=== PATIENT | female | born 1940 | race Caucasian/White ===

== ENCOUNTER 2017-06-26 11:36 | Inpatient (IN) | payer MEDICARE, OTHER ==
[2017-06-26] MEDS ORDERED: MORPHINE SULFATE 4 MG/ML SYRINGE IVP STA (12:23)
[2017-06-26] MEDS ORDERED: SODIUM CHLORIDE 0.9% 1,000 ML IV ONE (12:29)
--- NOTE | 2017-06-26 12:36 | ED ---
Fall HPI <Eliel Baires - Last Filed: 06/26/17 13:44> - General Source: patient, EMS, RN notes reviewed, old records reviewed Mode of arrival: EMS <Hilary Olson - Last Filed: 06/26/17 14:07> - General Chief Complaint: Fall Stated Complaint: right hip pain following fall at [employer] Time Seen by Provider: 06/26/17 12:06 - History of Present Illness Initial Comments: This patient is a pleasant 77-year-old female with a history of falling while she was leaving [employer] today. She reports that she someone steps and landed on her right hip. Since that she landed mainly on her hip ports that she did have a small contusion over the posterior scalp but did not lose consciousness. She states she has no upper extremity pain. Denies any numbness or tingling, leg. Patient states she is not seeing a primary care provider. They moved to this area a few years ago. Patient does not follow with PCP. Patient reports that she was unable to get up after the fall. (Hilary Olson) - Related Data Home Medications Medication Instructions Recorded Confirmed Acetaminophen Tab [Tylenol Tab] 650 mg PO Q4H PRN 06/26/17 06/26/17 Allergies Allergy/AdvReac Type Severity Reaction Status Date / Time codeine Allergy Unknown Verified 06/26/17 12:13 Review of Systems ROS Other: All systems not noted in ROS Statement are negative. <Eliel Baires - Last Filed: 06/26/17 13:44> ROS Other: All systems not noted in ROS Statement are negative. <Hilary Olson - Last Filed: 06/26/17 14:07> ROS Statement: Those systems with pertinent positive or pertinent negative responses have been documented in the HPI. Past Medical History Past Medical History: No Reported History History of Any Multi-Drug Resistant Organisms: None Reported Past Surgical History: Breast Surgery, Cholecystectomy, Hysterectomy Past Psychological History: No Psychological Hx Reported Smoking Status: Current every day smoker Past Alcohol Use History: None Reported Past Drug Use History: None Reported <Hilary Olson - Last Filed: 06/26/17 14:07> General Exam <Eliel Baires - Last Filed: 06/26/17 13:44> Limitations: physical limitation General appearance: alert, in no apparent distress Head exam: Present: atraumatic, normocephalic, normal inspection Eye exam: Present: normal appearance, PERRL, EOMI. Absent: scleral icterus, conjunctival injection, periorbital swelling ENT exam: Present: normal exam, normal oropharynx, mucous membranes moist Neck exam: Present: normal inspection. Absent: tenderness, meningismus, lymphadenopathy Respiratory exam: Present: normal lung sounds bilaterally. Absent: respiratory distress, wheezes, rales, rhonchi, stridor Cardiovascular Exam: Present: regular rate, normal rhythm, normal heart sounds. Absent: systolic murmur, diastolic murmur, rubs, gallop, clicks GI/Abdominal exam: Present: soft, normal bowel sounds. Absent: distended, tenderness, guarding, rebound, rigid Right Hip exam: Present: tenderness (over lateral hip), external rotation, shortening. Absent: normal inspection, full ROM Knee exam: Present: normal inspection, full ROM Lower Leg exam: Present: normal inspection, full ROM Ankle exam: Present: normal inspection, full ROM Foot/Toe exam: Present: normal inspection, full ROM Neurovascular tendon exam: Present: no vascular compromise Psychiatric exam: Present: normal affect, normal mood Skin exam: Present: warm, dry, intact, normal color. Absent: rash <Hilary Olson - Last Filed: 06/26/17 14:07> - General Exam Comments Initial Comments: This is a 77-year-old female. Alert and oriented morning 4. No distress. ( Hilary Olson) Vital Signs 06/26/17 11:48 Temperature 97.3 F L Pulse Rate 65 Respiratory 16 Rate Blood Pressure 144/63 O2 Sat by Pulse 96 Oximetry Medical Decision Making - Lab Data Result diagrams: 06/26/17 12:30 06/26/17 12:30 <Eliel Baires - Last Filed: 06/26/17 13:44> - Lab Data Result diagrams: 06/26/17 12:30 06/26/17 12:30 - Radiology Data Radiology results: report reviewed <Hilary Olson - Last Filed: 06/26/17 14:07> - Medical Decision Making Patient was reevaluated by myself, Dr. Baires. Patient and family updated. X- rays reviewed. Case was discussed in detail with Dr. Angel, who will admit with orthopedics. He does request medical consult. (Eliel Baires) This patient is a viral female chief complaint of right hip pain after falling while she was leaving [employer]. Patient has evidence of shortening of the right leg with external rotation. Patient has normal pulses distally. Normal sensation. Patient is otherwise healthy. She does not follow up with primary care provider. Review the x-rays and shows evidence of a femoral neck fracture. Discussed with Dr. Baires. He discussed with orthopedic physician Dr. Elias. We will admit the patient to Dr. Angel with consult to medicine. Patient will be given a consult to the on-call medical coverage. Patient was given a Mckeon cath for comfort care. She will be nothing by mouth after midnight. (iHlary Olson) - Lab Data Lab Results 06/26/17 06/26/17 06/26/17 Range/Units 12:30 12:30 12:30 WBC 6.6 (3.8-10.6) k/uL RBC 4.25 (3.80-5.40) m/uL Hgb 13.3 (11.4-16.0) gm/dL Hct 39.1 (34.0-46.0) % MCV 92.1 (80.0-100.0) fL MCH 31.3 (25.0-35.0) pg MCHC 34.0 (31.0-37.0) g/dL RDW 12.2 (11.5-15.5) % Plt Count 212 (150-450) k/uL Neutrophils % 71 % Lymphocytes % 21 % Monocytes % 6 % Eosinophils % 1 % Basophils % 1 % Neutrophils # 4.7 (1.3-7.7) k/uL Lymphocytes # 1.4 (1.0-4.8) k/uL Monocytes # 0.4 (0-1.0) k/uL Eosinophils # 0.1 (0-0.7) k/uL Basophils # 0.1 (0-0.2) k/uL PT 10.1 (9.0-12.0) sec INR 1.0 (<1.2) APTT 22.0 (22.0-30.0) sec Sodium 143 (137-145) mmol/L Potassium 5.0 (3.5-5.1) mmol/L Chloride 109 H (98-107) mmol/L Carbon Dioxide 28 (22-30) mmol/L Anion Gap 6 mmol/L BUN 15 (7-17) mg/dL Creatinine 0.85 (0.52-1.04) mg/dL Est GFR (CKD-EPI)AfAm 78 (>60 ml/min/1.73 sqM) Est GFR (CKD-EPI)NonAf 68 (>60 ml/min/1.73 sqM) Glucose 104 H (74-99) mg/dL Calcium 10.1 (8.4-10.2) mg/dL Total Bilirubin 0.5 (0.2-1.3) mg/dL AST 24 (14-36) U/L ALT 24 (9-52) U/L Alkaline Phosphatase 62 (38-126) U/L Total Protein 6.1 L (6.3-8.2) g/dL Albumin 3.8 (3.5-5.0) g/dL 06/26/17 14:06 EKG shows sinus bradycardia, possible left atrial enlargement. Nonspecific T-wave abnormality. Ventricular rate of 57 bpm. UT interval 150 ms. QRS duration 98 ms. QT QTc is 440/428 ms. (Hilary Olson) - Radiology Data Chest x-ray is negative for any acute cardiopulmonary process. There is an acute minimally displaced transcervical fracture of the right proximal femur femoral neck level. (Hilary Olson) Disposition <Eliel Baires - Last Filed: 06/26/17 13:44> Time of Disposition: 13:49 <Hilary Olson - Last Filed: 06/26/17 14:07> Clinical Impression: Closed right hip fracture Disposition: ADMITTED IP TO THIS HOSP Condition: Good
[2017-06-26 12:48] LABS: Basophils # (A) 0.1 k/uL (0-0.2); Basophils % (A) 1 %; Eosinophils # (A) 0.1 k/uL (0-0.7); Eosinophils % (A) 1 %; HCT 39.1 % (34.0-46.0); HGB 13.3 gm/dL (11.4-16.0); Lymphocytes # (A) 1.4 k/uL (1.0-4.8); Lymphocytes % (A) 21 %; MCH 31.3 pg (25.0-35.0); MCV 92.1 fL (80.0-100.0); Mean Platelet Volume 7.6; Monocytes # (A) 0.4 k/uL (0-1.0); Monocytes % (A) 6 %; Neutrophils # (A) 4.7 k/uL (1.3-7.7); Neutrophils % (A) 71 %; Platelet Count 212 k/uL (150-450); RBC 4.25 m/uL (3.80-5.40); RDW 12.2 % (11.5-15.5); WBC 6.6 k/uL (3.8-10.6)
[2017-06-26 13:01] LABS: Albumin 3.8 g/dL (3.5-5.0); Calcium 10.1 mg/dL (8.4-10.2); Total Bilirubin 0.5 mg/dL (0.2-1.3); Total Protein 6.1 g/dL (6.3-8.2)
[2017-06-26 13:02] LABS: Prothrombin Time 10.1 sec (9.0-12.0)
--- NOTE | 2017-06-26 13:14 | XR ---
EXAMINATION TYPE: XR chest 1V DATE OF EXAM: 06/26/2017 COMPARISON: NONE HISTORY: Presurgical study. TECHNIQUE: 2 frontal views of the chest are obtained. FINDINGS: Overlying artifact from bra is present. There is chronic parenchymal change without suspici ous focal air space opacity, pleural effusion, or pneumothorax seen. The cardiac silhouette size is within normal limits with atherosclerotic thoracic aorta. The osseous structures are somewhat demin eralized. Underlying scoliosis is present. IMPRESSION: No acute cardiopulmonary process.
--- NOTE | 2017-06-26 13:19 | XR ---
EXAMINATION TYPE: XR Hip RT and AP Pelvis DATE OF EXAM: 06/26/2017 COMPARISON: NONE HISTORY: Pain after fall injury. TECHNIQUE: A single AP view of the pelvis is obtained. Two views of the right hip are attempted. FINDINGS: [place] osseous structures are demineralized. There is acute slightly impacted transcervical fracture right proximal. No hip joint dislocation is seen. Incidental asymmetric mild to moderate ax ial joint space loss in the left hip. Pubic symphysis is intact. No additional acute fracture and pel vis is seen. Sacroiliac joints are maintained. Overlying vascular calcification is seen. IMPRESSION: There is acute minimally displaced transcervical fracture of the right proximal femur fe moral neck level.
[2017-06-26] MEDS ORDERED: NALOXONE 0.4 MG/ML 1 ML VIAL IV PRN (13:50)
[2017-06-26] MEDS ORDERED: IBUPROFEN 400 MG TAB PO PRN (13:50)
[2017-06-26] MEDS ORDERED: MORPHINE SULFATE 4 MG/ML SYRINGE IVP PRN (13:50)
[2017-06-26] MEDS ORDERED: ACETAMINOPHEN TAB 325 MG TAB PO PRN (13:50)
--- NOTE | 2017-06-26 14:37 | P.HPOR ---
History of Present Illness H&P Date: 06/26/17 Chief Complaint: right hip fracture Mrs. Jamey Rodriguez is a 77-year-old female was coming down the stairs today and missed the last step, and fell, sustaining a right hip injury. She was unable to walk, and was taken via ambulance to [facility] where x- rays were taken in the ER and showed a displaced femoral neck fracture. I was contacted for further evaluation and management of this injury. She does not complain of any other injuries and says that she is healthy. Review of Systems Constitutional: Reports as per HPI Past Medical History Past Medical History: No Reported History History of Any Multi-Drug Resistant Organisms: None Reported Past Surgical History: Breast Surgery, Cholecystectomy, Hysterectomy Past Psychological History: No Psychological Hx Reported Smoking Status: Current every day smoker Past Alcohol Use History: None Reported Past Drug Use History: None Reported Medications and Allergies Home Medications Medication Instructions Recorded Confirmed Type Acetaminophen Tab [Tylenol Tab] 650 mg PO Q4H PRN 06/26/17 06/26/17 History Allergies Allergy/AdvReac Type Severity Reaction Status Date / Time codeine Allergy Unknown Verified 06/26/17 12:13 Physical Examination Right hip irritable to rotation and any motion. Leg is slightly shortened and externally rotated. Intact pedal pulses. Skin intact over right hip. Results - Labs Labs: Abnormal Lab Results - Last 24 Hours (Table) 06/26/17 Range/Units 12:30 Chloride 109 H (98-107) mmol/L Glucose 104 H (74-99) mg/dL Total Protein 6.1 L (6.3-8.2) g/dL H & H 06/26/17 Range/Units 12:30 Hgb 13.3 (11.4-16.0) gm/dL Hct 39.1 (34.0-46.0) % Coagulation 06/26/17 Range/Units 12:30 INR 1.0 (<1.2) Result Diagrams: 06/26/17 12:30 06/26/17 12:30 - Diagnostic results Hip x-ray: report reviewed, image reviewed (Displaced right femoral neck fracture with some irregularity of the neck question pathologic) Assessment and Plan Assessment: Right displaced femoral neck fracture, possibly pathologic. Plan: Discussed cemented hemiarthroplasty with the patient in detail today. She wishes to proceed after explanation of the potential risks and complications as being inclusive of, but not limited to: Bleeding, infection, scarring, discomfort, blood vessel and/or nerve damage, limb length inequality, limp, blood clot, pulmonary embolism, , anesthesia risks, and other risks. Preoperative medical clearance will be obtained from hospitalist. Anticipate surgery tomorrow.
[2017-06-26 14:45] VITALS: BMI 25.6
[2017-06-26] MEDS: KETOROLAC 30 MG/ML 1 ML VIAL IVP PRN ×2 (15:03→21:19)
[2017-06-26] MEDS: MORPHINE SULFATE 4 MG/ML SYRINGE IV PRN (15:47)
[2017-06-26] MEDS: WARFARIN 5 MG TAB PO SCH (17:38)
[2017-06-26] MEDS: SODIUM CHLORIDE 0.9% 1,000 ML IV SCH (21:21)
[2017-06-26] MEDS: FAMOTIDINE 20 MG TAB PO SCH (21:21)
[2017-06-27] MEDS: SODIUM CHLORIDE 0.9% 1,000 ML IV SCH ×5 (03:56→23:43)
[2017-06-27] MEDS ORDERED: ceFAZolin IN SWFI 2 GM/20 ML SYRINGE IVP ONE (08:00)
[2017-06-27] MEDS: MORPHINE SULFATE 4 MG/ML SYRINGE IV PRN ×2 (08:00→14:57)
[2017-06-27] MEDS: ONDANSETRON 4 MG/2 ML VIAL IVP PRN (08:06)
[2017-06-27] MEDS: FAMOTIDINE 20 MG TAB PO SCH ×2 (08:49→23:41)
[2017-06-27] MEDS ORDERED: IV FLUID CONTINUATION 1,000 ML IV ONE (09:51)
[2017-06-27] MEDS ORDERED: MIDAZOLAM 2 MG/2 ML VIAL ONE (10:38)
[2017-06-27] MEDS ORDERED: LIDOCAINE 1% INJ 10MG/ML (20 ML MDV) ONE (10:38)
[2017-06-27] MEDS ORDERED: KETAMINE 10 MG/ML 20 ML VIAL ONE (10:38)
[2017-06-27] MEDS ORDERED: PROPOFOL 10 MG/ML 20 ML VIAL IV ONE (10:38)
[2017-06-27] MEDS ORDERED: GLYCOPYRROLATE 0.2 MG/ML 2 ML VIAL ONE (10:38)
--- NOTE | 2017-06-27 10:45 | P.CONS ---
History of Present Illness - Reason for Consult Consult date: 06/26/17 Medical management and postoperative care - Chief Complaint Right hip pain - History of Present Illness Patient is 77-year-old female with a known history of smoking and possible arthritis admitted to the hospital status post fall. Patient was coming down the stairs admission step and fell to the right side. Patient was unable to walk off of that and ambulance was called. Patient was brought to the hospital. A stuart otherwise denied any dizziness or lightheadedness. No complaints of chest pain or shortness of breath. No nausea vomiting or abdominal pain. No blurry vision or headache. No numbness or tingling noted. Denied any tingling of the leg. X-ray right hip and pelvis showed there is acute minimally displaced transverse cervical fracture of the right proximal femur femoral neck level. Chest x-ray showed no acute process. Review of Systems Constitutional: Patient denies any fever or chills . No generalized weakness or weight loss. Abdomen: Patient denied nausea vomiting and diarrhea and abdominal pain. Cardiovascular: Patient denies any chest pain or short of breath no palpitations. Respiratory: patient denied any cough is from production. No shortness of breath Neurologic: Patient denied any numbness or tingling headache. Musculoskeletal: Patient denies any complaints of joint swelling or deformity. Right hip pain and decreased range of motion Skin: Negative Psychiatric: Negative Endocrine: No heat or cold intolerance. No recent weight gain. Genitourinary: No dysuria or hematuria. 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 Past Psychological History: No Psychological Hx Reported Smoking Status: Current every day smoker Past Alcohol Use History: None Reported Past Drug Use History: None Reported - Past Family History Mother Additional Family Medical History / Comment(s): lung cancer Father Additional Family Medical History / Comment(s): bone cancer Medications and Allergies Home Medications Medication Instructions Recorded Confirmed Type Acetaminophen Tab [Tylenol Tab] 650 mg PO Q4H PRN 06/26/17 06/26/17 History Allergies Allergy/AdvReac Type Severity Reaction Status Date / Time codeine Allergy Unknown Verified 06/26/17 14:47 Physical Exam Vitals: Vital Signs Temp Pulse Pulse Resp BP BP Pulse Ox 06/26/17 15:00 97.1 F L 85 16 115/64 97 06/26/17 11:48 97.3 F L 65 16 144/63 96 Intake and Output 06/26/17 06/26/17 06/26/17 06:59 14:59 22:59 Other: Voiding Method Indwelling Catheter Weight 63.503 kg Patient Weight 06/27/17 07:59 Weight 63.503 kg PHYSICAL EXAMINATION: Patient is lying in the bed comfortably, no acute distress, awake alert and oriented.. HEENT: Normocephalic. Neck is supple. Pupils reactive. Nostrils clear. Oral cavity is moist. Ears reveal no drainage. Neck reveals no JVD, carotid bruits, or thyromegaly. CHEST EXAMINATION: Trachea is central. Symmetrical expansion. Lung flor clear to auscultation and percussion. CARDIAC: Normal S1, S2 with no gallops. No murmurs ABDOMEN: Soft. Bowel sounds normal. No organomegaly. No abdominal bruits. Extremities: reveal no edema. No clubbing or cyanosis Neurologically awake, alert, oriented x3 with well-coordinated movements. No focal deficits noted Skin: No rash or skin lesions. Psychiatric: Coperative. Nonsuicidal Musculoskeletal: Right hip joint pain. Decreased range of motion. No swelling. Tenderness of the right hip area. Results CBC & Chem 7: 06/26/17 12:30 06/26/17 12:30 Labs: Abnormal Lab Results - Last 24 Hours (Table) 06/26/17 Range/Units 12:30 Chloride 109 H (98-107) mmol/L Glucose 104 H (74-99) mg/dL Total Protein 6.1 L (6.3-8.2) g/dL Assessment and Plan Assessment: Status post mechanical fall and right femoral neck fracture Active nicotine addiction DVT prophylaxis Plan: Patient sustained injury due to mechanical fall. Denied any chest pain or shortness of breath. No history of coronary disease. Renal function stable. No active complaints of chest pain or shortness of breath. No history of COPD. Patient is medically stable for moderate risk orthopedic surgery. We will continue to follow closely and further recommendations based on the clinical course Thank you for your consult
[2017-06-27] MEDS ORDERED: LACTATED RINGERS 1,000 ML IV ONE (10:46)
[2017-06-27] MEDS ORDERED: ceFAZolin 3,000 MG in SODIUM CHLORIDE 0.9% IRRIGATIO 3,000 ML IRRIGATION ONE (11:16)
--- NOTE | 2017-06-27 12:53 | P.OP ---
Date of Procedure: 06/27/17 Procedure(s) Performed: PREOPERATIVE DIAGNOSIS: Right hip femoral neck fracture POSTOPERATIVE DIAGNOSIS: Right hip femoral neck fracture OPERATION: Right hip cemented unipolar hemiarthroplasty. ANESTHESIA: Spinal ESTIMATED BLOOD LOSS: 150 ml. CORRUGATOR OPERATOR HELPER: None COMPLICATIONS: None apparent. COMPONENTS IMPLANTED: Marlo LDFx cemented femoral stem; unipolar femoral head; neck extension augments as needed. INDICATIONS: Mrs. Alex is a 77-year-old female with a history of falling and sustaining a right femoral neck fracture. I have recommended surgical treatment with a cemented unipolar hemiarthroplasty. I have discussed this procedure in detail and explained the potential risks and complications as being inclusive of, but not limited to: Bleeding, infection, scarring, discomfort, blood vessel and/or nerve damage, limb length inequality, gait disturbance, blood clot, pulmonary embolism, , and other risks. The consent form has been signed. PROCEDURE: After appropriate consent was obtained, the patient was taken to the operating room and placed in supine position. Spinal anesthetic was administered and after confirmation of adequate anesthesia, the patient was placed into the lateral decubitus position with the affected side up. Care was taken to make sure that all pressure points were adequately padded and a [place] hip positioner was utilized for positioning. The hip was prepped and draped in the usual aseptic fashion using a combination of Chloraprep and alcohol. [place] drape was used for the case and the patient received intravenous antibiotics prior to the incision. The incision was created directly over the greater trochanter and carried slightly posteriorly for a posterior approach to the hip. The incision was then deepened down to subcutaneous tissue and fascia luis. Fascia luis was split in line with the incision and split proximally along the fibers of the gluteus michael. The underlying fibers of the muscle were teased apart using finger dissection and bleeding vessels were picked up and coagulated. Retractor was then placed posteriorly consisting of a blunt Shalini. The short external rotators and capsule were exposed and good visualization of the attachment of the external rotators to the femur was established. The short external rotators and capsule were released using electrocautery from their femoral attachments. A hockey stick shaped incision was created in the capsule. Joint fluid and hemarthrosis was evacuated and the patient's hip was internally rotated to expose the fracture site. The femoral neck cut was created approximately 1 cm superior to the lesser trochanter using a reciprocating saw. The femoral head and neck fragment was removed and visualization and palpation of the acetabular vault showed intact hyaline cartilage with no bone exposure or significant degeneration. Attention was then directed back to the proximal femur. Retractors were placed around the proximal femur and box osteotome was used followed by canal finder and trochanteric reamer. Cylindrical reaming was performed. Progressive broaching was then performed starting with a #10 broach and progressing final size, in a position of 10-15 degrees anteversion. [place] anteversion was within 5 degrees of stem position. The final size broach had excellent fit and fill of the patient's metaphysis and diaphysis. Calcar planing was performed. Trial reduction was then performed starting with appropriately sized femoral head and various neck extensions to evaluate stability, limb length equality, and soft tissue tension. Once these parameters were satisfactory, the corresponding final components were then called for. Trial components were removed. The femoral canal was sized for the centralizer and cement plug. Once the cement plug had been inserted distal to the planned length of the femoral component, the canal was pulse lavaged and brushed to remove any unstable bone. It was then dried with a lap sponge. Cement was mixed under vacuum conditions to decrease porosity and inserted into a cement gun. Distal centralizer was placed onto the femoral component with a bit of cement. The cement was allowed to reach a slightly doughy consistency and then the canal was filled retrograde with the cement gun. Thumb pressurization was performed three times. The femoral component was then inserted with the previously determined degree of anteversion. Excess cement was removed before it hardened completely. The femoral head was then impacted onto the [place] taper. Blood and debris were removed from the acetabular socket and the hip was then reduced and checked for stability, limb length and soft tissue tension. These parameters were found to be satisfactory; the wound was then thoroughly irrigated with normal saline. Final hemostasis was obtained using electrocautery. Closure of the capsule was performed meticulously using #3 Vicryl suture. Four [id number] sutures were placed in the posterior capsule along with repair of the external rotators. The fascia luis was then repaired using combination of #3 Vicryl suture in interrupted fashion and [place] in running fashion. 2-0 Vicryl suture was used for the subcutaneous tissues and 3-0 Quill for the skin. Dermabond tape was then applied. The patient tolerated the procedure well. There were no complications and the wound bed was dry and there was no need for drain placement. Sterile dressing was then applied and the patient was carefully removed from the operating room table, placed on the stretcher and was taken to the recovery room in stable condition. Sponge and needle counts were correct.
[2017-06-27 14:08] LABS: Basophils # (A) 0.1 k/uL (0-0.2); Basophils % (A) 1 %; Eosinophils % (A) 0 %; HCT 36.2 % (34.0-46.0); HGB 12.7 gm/dL (11.4-16.0); Lymphocytes % (A) 10 %; MCH 32.7 pg (25.0-35.0); MCHC 35.2 g/dL (31.0-37.0); MCV 92.9 fL (80.0-100.0); Mean Platelet Volume 7.8; Monocytes # (A) 0.4 k/uL (0-1.0); Monocytes % (A) 4 %; Neutrophils # (A) 7.9 k/uL (1.3-7.7); Neutrophils % (A) 84 %; Platelet Count 180 k/uL (150-450); RDW 12.2 % (11.5-15.5); WBC 9.3 k/uL (3.8-10.6)
[2017-06-27 14:15] LABS: INR 1.1 (<1.2); Prothrombin Time 10.9 sec (9.0-12.0)
[2017-06-27] MEDS: HYDROcodone/APAP 5-325MG 1 EACH TAB PO PRN (15:35)
--- NOTE | 2017-06-27 18:29 | XR ---
EXAMINATION TYPE: XR Hip Limited RT DATE OF EXAM: 06/27/2017 CLINICAL HISTORY: Right hip pain and osteoarthritis. TECHNIQUE: Single AP portable view of right hip is obtained immediately postoperatively. COMPARISON: None. FINDINGS: Metallic hardware from right hip arthroplasty is seen and appears satisfactory in alignment and position. There is evidence of recent surgery with subcutaneous gas noted laterally. IMPRESSION: Metallic hardware from right hip arthroplasty is satisfactory in position.
[2017-06-27] MEDS: WARFARIN 5 MG TAB PO SCH (19:11)
[2017-06-27] MEDS: ceFAZolin IN SWFI 2 GM/20 ML SYRINGE IVP SCH ×2 (19:11→23:43)
--- NOTE | 2017-06-27 22:45 | P.PN ---
Subjective Progress Note Date: 06/27/17 Principal diagnosis: Right femoral neck fracture Patient is 77-year-old female with a known history of smoking and possible arthritis admitted to the hospital status post fall. Patient was coming down the stairs admission step and fell to the right side. Patient was unable to walk off of that and ambulance was called. Patient was brought to the hospital. A stuart otherwise denied any dizziness or lightheadedness. No complaints of chest pain or shortness of breath. No nausea vomiting or abdominal pain. No blurry vision or headache. No numbness or tingling noted. Denied any tingling of the leg. X-ray right hip and pelvis showed there is acute minimally displaced transverse cervical fracture of the right proximal femur femoral neck level. Chest x-ray showed no acute process. 06/27/2017 Patient underwent Right hip cemented unipolar hemiarthroplasty. Denied any complaints of chest pain or shortness of breath. No nausea vomiting or abdominal pain. No fever no chills. Tolerated the procedure very well. Currently patient is still drowsy but able to provide history. All other review of systems negative except the above Current medications reviewed Objective - Vital Signs Vital signs: Vital Signs Temp 97.7 F 06/27/17 20:14 Pulse 73 06/27/17 20:14 Resp 16 06/27/17 20:14 BP 126/54 06/27/17 20:14 Pulse Ox 93 L 06/27/17 20:14 Intake & Output 06/27/17 06/27/17 06/28/17 06:59 18:59 06:59 Intake Total 1888 Output Total 405 Balance 1483 Intake: IV 1651 Sodium Chloride 0.9% 1, 600 000 ml @ 120 mls/hr IV . Q8H20M [facility] Rx#:[id number] Oral 237 Output: Urine 330 Uretheral (Mckeon) Estimated Blood Loss 75 Other: Voiding Method Indwelling Catheter # Voids - Exam PHYSICAL EXAMINATION: Patient is lying in the bed comfortably, no acute distress, awake alert and oriented.. HEENT: Normocephalic. Neck is supple. Pupils reactive. Nostrils clear. Oral cavity is moist. Ears reveal no drainage. Neck reveals no JVD, carotid bruits, or thyromegaly. CHEST EXAMINATION: Trachea is central. Symmetrical expansion. Lung flor clear to auscultation and percussion. CARDIAC: Normal S1, S2 with no gallops. No murmurs ABDOMEN: Soft. Bowel sounds normal. No organomegaly. No abdominal bruits. Extremities: reveal no edema. No clubbing or cyanosis Neurologically awake, alert, oriented x3 with well-coordinated movements. No focal deficits noted Skin: No rash or skin lesions. Psychiatric: Coperative. Nonsuicidal Musculoskeletal: Right hip surgical site bandaged. No joint swelling or deformity. Normal range of motion. - Labs CBC & Chem 7: 06/27/17 13:54 06/26/17 12:30 Labs: Abnormal Lab Results - Last 24 Hours (Table) 06/27/17 Range/Units 13:54 Neutrophils # 7.9 H (1.3-7.7) k/uL Assessment and Plan Assessment: Status post mechanical fall and right femoral neck fracture. Status post right hip arthroplasty on 06/27/2017 Active nicotine addiction DVT prophylaxis Plan: Patient will be continued on pain medications and bowel regimen. DVT prophylaxis. PT OT. Encourage incentive spirometry. We will follow closely and further recommendations based on the clinical course.
[2017-06-27] MEDS: SENNOSIDES-DOCUSATE SODIUM 1 EACH TAB PO SCH (23:43)
[2017-06-28] MEDS: MORPHINE SULFATE 4 MG/ML SYRINGE IV PRN (00:08)
[2017-06-28] MEDS: ONDANSETRON 4 MG/2 ML VIAL IVP PRN (00:08)
[2017-06-28 07:31] LABS: INR 1.3 (<1.2); Prothrombin Time 12.3 sec (9.0-12.0)
[2017-06-28] MEDS: SODIUM CHLORIDE 0.9% 1,000 ML IV SCH ×2 (09:36→17:09)
[2017-06-28] MEDS: ENOXAPARIN 40 MG/0.4 ML SYRINGE SQ SCH (11:05)
[2017-06-28] MEDS: FAMOTIDINE 20 MG TAB PO SCH (11:05)
[2017-06-28] MEDS: HYDROcodone/APAP 5-325MG 1 EACH TAB PO PRN ×2 (11:12→17:22)
[2017-06-28] MEDS: MULTIVITAMINS, THERA 1 EACH TAB PO SCH (13:07)
[2017-06-28] MEDS ORDERED: WARFARIN 10 MG TAB PO ONE (18:00)
--- NOTE | 2017-06-28 23:01 | P.PN ---
Subjective Progress Note Date: 06/28/17 Principal diagnosis: Right femoral neck fracture Patient is 77-year-old female with a known history of smoking and possible arthritis admitted to the hospital status post fall. Patient was coming down the stairs admission step and fell to the right side. Patient was unable to walk off of that and ambulance was called. Patient was brought to the hospital. A stuart otherwise denied any dizziness or lightheadedness. No complaints of chest pain or shortness of breath. No nausea vomiting or abdominal pain. No blurry vision or headache. No numbness or tingling noted. Denied any tingling of the leg. X-ray right hip and pelvis showed there is acute minimally displaced transverse cervical fracture of the right proximal femur femoral neck level. Chest x-ray showed no acute process. 06/27/2017 Patient underwent Right hip cemented unipolar hemiarthroplasty. Denied any complaints of chest pain or shortness of breath. No nausea vomiting or abdominal pain. No fever no chills. Tolerated the procedure very well. Currently patient is still drowsy but able to provide history. 06/28/2017 Patient denied any new complaints today. Participating in physical therapy. Currently sitting in a chair. No fever no chills. No headache or dizziness or lightheadedness. No chest pain or shortness of breath. INR 1.3 All other review of systems negative except the above Current medications reviewed Objective - Vital Signs Vital signs: Vital Signs Temp 99.5 F 06/28/17 20:00 Pulse 86 06/28/17 20:00 Resp 16 06/28/17 20:00 BP 121/71 06/28/17 20:00 Pulse Ox 95 06/28/17 20:00 Intake & Output 06/28/17 06/28/17 06/29/17 06:59 18:59 06:59 Intake Total 590 500 Output Total 260 1800 Balance 330 -1300 Weight 63.503 kg Intake: Oral 590 500 Output: Urine 260 1800 Uretheral ([place]on) 1500 Other: Voiding Method Indwelling Catheter Indwelling Catheter # Voids 1 - Exam PHYSICAL EXAMINATION: Patient is lying in the bed comfortably, no acute distress, awake alert and oriented.. HEENT: Normocephalic. Neck is supple. Pupils reactive. Nostrils clear. Oral cavity is moist. Ears reveal no drainage. Neck reveals no JVD, carotid bruits, or thyromegaly. CHEST EXAMINATION: Trachea is central. Symmetrical expansion. Lung flor clear to auscultation and percussion. CARDIAC: Normal S1, S2 with no gallops. No murmurs ABDOMEN: Soft. Bowel sounds normal. No organomegaly. No abdominal bruits. Extremities: reveal no edema. No clubbing or cyanosis Neurologically awake, alert, oriented x3 with well-coordinated movements. No focal deficits noted Skin: No rash or skin lesions. Psychiatric: Coperative. Nonsuicidal Musculoskeletal: Right hip surgical site bandaged. No joint swelling or deformity. Normal range of motion. - Labs CBC & Chem 7: 06/27/17 13:54 06/26/17 12:30 Labs: Abnormal Lab Results - Last 24 Hours (Table) 06/28/17 Range/Units 06:47 PT 12.3 H (9.0-12.0) sec INR 1.3 H (<1.2) Assessment and Plan Assessment: Status post mechanical fall and right femoral neck fracture. Status post right hip arthroplasty on 06/27/2017 Active nicotine addiction DVT prophylaxis Plan: Patient will be continued on pain medications and bowel regimen. DVT prophylaxis. PT OT. Encourage incentive spirometry. Antibiotic regulation with Coumadin. INR 1.3 We will follow closely and further recommendations based on the clinical course. Time with Patient: Greater than 30
[2017-06-29] MEDS: SENNOSIDES-DOCUSATE SODIUM 1 EACH TAB PO SCH ×2 (01:06→20:20)
[2017-06-29] MEDS: SODIUM CHLORIDE 0.9% 1,000 ML IV SCH ×3 (06:08→17:54)
[2017-06-29 07:59] LABS: INR 1.7 (<1.2); Prothrombin Time 15.4 sec (9.0-12.0)
[2017-06-29 08:02] LABS: Basophils % (A) 0 %; Eosinophils % (A) 0 %; HCT 29.2 % (34.0-46.0); HGB 10.5 gm/dL (11.4-16.0); Lymphocytes # (A) 1.5 k/uL (1.0-4.8); Lymphocytes % (A) 16 %; MCH 32.6 pg (25.0-35.0); MCHC 35.8 g/dL (31.0-37.0); MCV 90.9 fL (80.0-100.0); Mean Platelet Volume 7.7; Monocytes # (A) 0.7 k/uL (0-1.0); Monocytes % (A) 8 %; Neutrophils # (A) 6.9 k/uL (1.3-7.7); Neutrophils % (A) 74 %; Platelet Count 158 k/uL (150-450); RBC 3.22 m/uL (3.80-5.40); RDW 12.2 % (11.5-15.5); WBC 9.3 k/uL (3.8-10.6)
[2017-06-29] MEDS: HYDROcodone/APAP 5-325MG 1 EACH TAB PO PRN ×2 (10:03→18:07)
[2017-06-29] MEDS: FAMOTIDINE 20 MG TAB PO SCH (10:03)
[2017-06-29] MEDS: ENOXAPARIN 40 MG/0.4 ML SYRINGE SQ SCH (10:03)
--- NOTE | 2017-06-29 10:47 | P.PN ---
Subjective Progress Note Date: 06/28/17 Principal diagnosis: Right hip fracture. Status post hemiarthroplasty right hip. This is a 77-year-old female who is status post hemiarthroplasty of the right hip. She has no new complaints or concerns today. Vital signs are stable. Objective - Vital Signs Vital signs: Vital Signs Temp 98.4 F 06/28/17 14:52 Pulse 96 06/28/17 14:52 Resp 16 06/28/17 14:52 BP 143/64 06/28/17 14:52 Pulse Ox 93 L 06/28/17 14:52 Intake & Output 06/27/17 06/28/17 06/28/17 18:59 06:59 18:59 Intake Total 1888 590 500 Output Total 973 681 3237 Balance 1483 330 -1300 Weight 63.503 kg Intake: IV 1651 Sodium Chloride 0.9% 1, 600 000 ml @ 120 mls/hr IV . Q8H20M [facility] Rx#:[id number] Oral 237 590 500 Output: Urine 558 479 7357 Uretheral ([place]) 1500 Estimated Blood Loss 75 Other: Voiding Method Indwelling Catheter Indwelling Catheter Indwelling Catheter - Exam This is a pleasant 87-year-old female in no acute distress. She is alert and oriented 3. Exam of the right hip reveals that her incision looks good. There is no active drainage. There is no erythema. There is mild soft tissue swelling. She has full foot and ankle motion without difficulty or pain. Neurovascular status to the lower extremity is intact. - Labs CBC & Chem 7: 06/29/17 07:14 06/26/17 12:30 Labs: Abnormal Lab Results - Last 24 Hours (Table) 06/28/17 Range/Units 06:47 PT 12.3 H (9.0-12.0) sec INR 1.3 H (<1.2) Assessment and Plan (1) Status post hip hemiarthroplasty Current Visit: Yes Status: Acute Code(s): Z96.649 - PRESENCE OF UNSPECIFIED ARTIFICIAL HIP JOINT SNOMED Code(s): 102949766 (2) Closed right hip fracture Current Visit: Yes Status: Acute Code(s): S72.001A - FRACTURE OF UNSP PART OF NECK OF RIGHT FEMUR, INIT SNOMED Code(s): 255208766 Plan: The clinical findings are discussed the patient. We are planning discharge to home versus rehab on Wednesday.
--- NOTE | 2017-06-29 10:49 | P.PN ---
Subjective Progress Note Date: 06/29/17 Principal diagnosis: Right hip fracture. Status post hemiarthroplasty right hip. This is a 77-year-old female who is status post hemiarthroplasty of the right hip. She has no new complaints or concerns today. Vital signs are stable. Objective - Vital Signs Vital signs: Vital Signs Temp 98.8 F 06/29/17 09:53 Pulse 76 06/29/17 09:53 Resp 24 06/29/17 09:53 BP 150/89 06/29/17 09:53 Pulse Ox 95 06/29/17 09:53 Intake & Output 06/28/17 06/29/17 06/29/17 18:59 06:59 18:59 Intake Total 500 Output Total 1800 Balance -1300 Weight 63.503 kg Intake: Oral 500 Output: Urine 1800 Uretheral ([place]on) 1500 Other: Voiding Method Indwelling Catheter Toilet # Voids 1 - Exam This is a pleasant 87-year-old female in no acute distress. She is alert and oriented 3. Exam of the right hip reveals that her incision looks good. There is no active drainage. There is no erythema. There is mild soft tissue swelling. She has full foot and ankle motion without difficulty or pain. Neurovascular status to the lower extremity is intact. - Labs CBC & Chem 7: 06/29/17 07:14 06/26/17 12:30 Labs: Abnormal Lab Results - Last 24 Hours (Table) 06/29/17 06/29/17 Range/Units 07:14 07:14 RBC 3.22 L (3.80-5.40) m/uL Hgb 10.5 L (11.4-16.0) gm/dL Hct 29.2 L (34.0-46.0) % PT 15.4 H (9.0-12.0) sec INR 1.7 H (<1.2) Assessment and Plan (1) Status post hip hemiarthroplasty Current Visit: Yes Status: Acute Code(s): Z96.649 - PRESENCE OF UNSPECIFIED ARTIFICIAL HIP JOINT SNOMED Code(s): 603338762 (2) Closed right hip fracture Current Visit: Yes Status: Acute Code(s): S72.001A - FRACTURE OF UNSP PART OF NECK OF RIGHT FEMUR, INIT SNOMED Code(s): 258906230 Plan: The clinical findings are discussed the patient. We are planning discharge to home versus rehab tomorrow.
[2017-06-29] MEDS: MULTIVITAMINS, THERA 1 EACH TAB PO SCH (12:51)
[2017-06-29] MEDS ORDERED: HYDROmorphone 4 MG TABLET PO PRN (15:09)
[2017-06-29] MEDS ORDERED: HYDROmorphone 2 MG TAB PO PRN (15:10)
[2017-06-29] MEDS ORDERED: WARFARIN 7.5 MG TAB PO ONE (18:00)
[2017-06-29 20:19] VITALS: RESP 16
[2017-06-30] MEDS: HYDROcodone/APAP 5-325MG 1 EACH TAB PO PRN ×2 (00:14→08:50)
[2017-06-30] MEDS: SODIUM CHLORIDE 0.9% 1,000 ML IV SCH ×2 (01:27→12:10)
[2017-06-30 07:40] LABS: INR 1.9 (<1.2); Prothrombin Time 17.1 sec (9.0-12.0)
[2017-06-30 08:48] VITALS: BP 124/75; PULSE 88; TEMP 99.5
[2017-06-30] MEDS: FAMOTIDINE 20 MG TAB PO SCH (08:50)
[2017-06-30] MEDS: ENOXAPARIN 40 MG/0.4 ML SYRINGE SQ SCH (08:50)
--- NOTE | 2017-06-30 08:50 | P.DS ---
Providers Date of admission: 06/26/17 13:45 Expected date of discharge: 06/30/17 Attending physician: Flavio Angel Consults: 06/26/17 13:50 Consult Physician Stat Consulting Provider: Bj Heredia Consult Reason/Comments: Right Hip Fx, Medical Mgmt Do you want consulting provider notified?: Yes Primary care physician: Stated None - Discharge Diagnosis(es) (1) Status post hip hemiarthroplasty Current Visit: Yes Status: Acute (2) Closed right hip fracture Current Visit: Yes Status: Acute Hospital Course: This is a 77-year-old female who presented on 06/26/2017 after falling and sustaining injury to the right hip. On exam and x-ray in the emergency department she was found to have a hip fracture. The pt is admitted to our service for surgical intervention and care. The patient is taken to surgery for hemiarthroplasty of the right hip. The procedure is performed without complication or sequelae. The patient is doing well postoperatively. Vital signs are stable on postop day #3. There are no new complaints or concerns. The patient is discharged to inpatient rehab pending medical clearance today. Please refer to the [facility] for accurate list of medications. Patient Condition at Discharge: Good Plan - Discharge Summary Discharge Rx Participant: No New Discharge Prescriptions: New Warfarin [Coumadin] 2.5 mg PO DAILY #30 tab HYDROcodone/APAP 5-325MG [[place] 5-325] 1 - 2 each PO Q4-6H PRN #90 tab PRN Reason: Pain Sennosides-Docusate Sodium [Senokot-S] 1 tab PO BID #60 tablet No Action Acetaminophen Tab [Tylenol Tab] 650 mg PO Q4H PRN PRN Reason: Pain Or Fever > 100.5 Discharge Medication List Acetaminophen Tab [Tylenol Tab] 650 mg PO Q4H PRN 06/26/17 [History] HYDROcodone/APAP 5-325MG [[place] 5-325] 1 - 2 each PO Q4-6H PRN #90 tab 06/29/17 [Rx] Sennosides-Docusate Sodium [Senokot-S] 1 tab PO BID #60 tablet 06/29/17 [Rx] Warfarin [Coumadin] 2.5 mg PO DAILY #30 tab 06/29/17 [Rx] Follow up Appointment(s)/Referral(s): [facility], [NON-STAFF] - None,Stated [Primary Care Provider] - 1-2 days Flavio Angel MD [STAFF PHYSICIAN] - 3 Weeks Ambulatory/Diagnostic Orders: Prothrombin Time INR [LAB.AMB] Location: Determined By Patient Activity/Diet/Wound Care/Special Instructions: May shower if no drainage from incision. May bear weight as tolerated with walker Walker - [facility] - [phone] - delivered to bedside
[2017-06-30] MEDS: MULTIVITAMINS, THERA 1 EACH TAB PO SCH (11:55)
[2017-06-30] MEDS ORDERED: WARFARIN 7.5 MG TAB PO ONE (18:00)
--- NOTE | 2017-06-30 22:07 | P.PN ---
Subjective Progress Note Date: 06/29/17 Principal diagnosis: Right femoral neck fracture Patient is 77-year-old female with a known history of smoking and possible arthritis admitted to the hospital status post fall. Patient was coming down the stairs admission step and fell to the right side. Patient was unable to walk off of that and ambulance was called. Patient was brought to the hospital. A stuart otherwise denied any dizziness or lightheadedness. No complaints of chest pain or shortness of breath. No nausea vomiting or abdominal pain. No blurry vision or headache. No numbness or tingling noted. Denied any tingling of the leg. X-ray right hip and pelvis showed there is acute minimally displaced transverse cervical fracture of the right proximal femur femoral neck level. Chest x-ray showed no acute process. 06/27/2017 Patient underwent Right hip cemented unipolar hemiarthroplasty. Denied any complaints of chest pain or shortness of breath. No nausea vomiting or abdominal pain. No fever no chills. Tolerated the procedure very well. Currently patient is still drowsy but able to provide history. 06/28/2017 Patient denied any new complaints today. Participating in physical therapy. Currently sitting in a chair. No fever no chills. No headache or dizziness or lightheadedness. No chest pain or shortness of breath. INR 1.3 06/29/2017 Patient denied any new complaints today. Heart is waiting in physical therapy. Otherwise no chest pain no shortness of breath no dizziness or lightheadedness. No acute overnight issues. INR 1.7 today All other review of systems negative except the above Current medications reviewed Objective - Vital Signs Vital signs: Vital Signs Temp 98.5 F 06/29/17 15:20 Pulse 84 06/29/17 15:20 Resp 18 06/29/17 15:20 BP 147/78 06/29/17 15:20 Pulse Ox 95 06/29/17 15:20 Intake & Output 06/29/17 06/29/17 06/30/17 06:59 18:59 06:59 Intake Total 0 Balance 0 Intake: Intake, IV Titration 0 Amount Sodium Chloride 0.9% 1, 0 000 ml @ 120 mls/hr IV . Q8H20M [facility] Rx#:[id number] Other: Voiding Method Toilet # Voids 1 - Exam PHYSICAL EXAMINATION: Patient is lying in the bed comfortably, no acute distress, awake alert and oriented.. HEENT: Normocephalic. Neck is supple. Pupils reactive. Nostrils clear. Oral cavity is moist. Ears reveal no drainage. Neck reveals no JVD, carotid bruits, or thyromegaly. CHEST EXAMINATION: Trachea is central. Symmetrical expansion. Lung flor clear to auscultation and percussion. CARDIAC: Normal S1, S2 with no gallops. No murmurs ABDOMEN: Soft. Bowel sounds normal. No organomegaly. No abdominal bruits. Extremities: reveal no edema. No clubbing or cyanosis Neurologically awake, alert, oriented x3 with well-coordinated movements. No focal deficits noted Skin: No rash or skin lesions. Psychiatric: Coperative. Nonsuicidal Musculoskeletal: Right hip surgical site bandaged. No joint swelling or deformity. Normal range of motion. - Labs CBC & Chem 7: 06/29/17 07:14 06/26/17 12:30 Labs: Abnormal Lab Results - Last 24 Hours (Table) 06/29/17 06/29/17 Range/Units 07:14 07:14 RBC 3.22 L (3.80-5.40) m/uL Hgb 10.5 L (11.4-16.0) gm/dL Hct 29.2 L (34.0-46.0) % PT 15.4 H (9.0-12.0) sec INR 1.7 H (<1.2) Assessment and Plan Assessment: Status post mechanical fall and right femoral neck fracture. Status post right hip arthroplasty on 06/27/2017 Active nicotine addiction DVT prophylaxis Plan: Patient will be continued on pain medications and bowel regimen. DVT prophylaxis. PT OT. Encourage incentive spirometry. Antibiotic regulation with Coumadin. INR 1.7 We will follow closely and further recommendations based on the clinical course.
--- NOTE | 2017-06-30 22:08 | P.PN ---
Subjective Progress Note Date: 06/30/17 Principal diagnosis: Right femoral neck fracture Patient is 77-year-old female with a known history of smoking and possible arthritis admitted to the hospital status post fall. Patient was coming down the stairs admission step and fell to the right side. Patient was unable to walk off of that and ambulance was called. Patient was brought to the hospital. A stuart otherwise denied any dizziness or lightheadedness. No complaints of chest pain or shortness of breath. No nausea vomiting or abdominal pain. No blurry vision or headache. No numbness or tingling noted. Denied any tingling of the leg. X-ray right hip and pelvis showed there is acute minimally displaced transverse cervical fracture of the right proximal femur femoral neck level. Chest x-ray showed no acute process. 06/27/2017 Patient underwent Right hip cemented unipolar hemiarthroplasty. Denied any complaints of chest pain or shortness of breath. No nausea vomiting or abdominal pain. No fever no chills. Tolerated the procedure very well. Currently patient is still drowsy but able to provide history. 06/28/2017 Patient denied any new complaints today. Participating in physical therapy. Currently sitting in a chair. No fever no chills. No headache or dizziness or lightheadedness. No chest pain or shortness of breath. INR 1.3 06/30/2017 Patient denied any new complaints today. No chest pain no shortness of breath. INR 1.9. Patient is being discharged home. Otherwise patient is stable to be discharged. All other review of systems negative except the above Current medications reviewed Objective - Vital Signs Vital signs: Vital Signs Temp 99.5 F 06/30/17 08:43 Pulse 88 06/30/17 08:43 Resp 16 06/30/17 08:43 BP 124/75 06/30/17 08:43 Pulse Ox 98 06/30/17 08:43 Intake & Output 06/30/17 06/30/17 07/01/17 06:59 18:59 06:59 Other: Voiding Method Toilet # Voids 1 - Exam PHYSICAL EXAMINATION: Patient is lying in the bed comfortably, no acute distress, awake alert and oriented.. HEENT: Normocephalic. Neck is supple. Pupils reactive. Nostrils clear. Oral cavity is moist. Ears reveal no drainage. Neck reveals no JVD, carotid bruits, or thyromegaly. CHEST EXAMINATION: Trachea is central. Symmetrical expansion. Lung flor clear to auscultation and percussion. CARDIAC: Normal S1, S2 with no gallops. No murmurs ABDOMEN: Soft. Bowel sounds normal. No organomegaly. No abdominal bruits. Extremities: reveal no edema. No clubbing or cyanosis Neurologically awake, alert, oriented x3 with well-coordinated movements. No focal deficits noted Skin: No rash or skin lesions. Psychiatric: Coperative. Nonsuicidal Musculoskeletal: Right hip surgical site bandaged. No joint swelling or deformity. Normal range of motion. - Labs CBC & Chem 7: 06/29/17 07:14 06/26/17 12:30 Labs: Abnormal Lab Results - Last 24 Hours (Table) 06/30/17 Range/Units 06:30 PT 17.1 H (9.0-12.0) sec INR 1.9 H (<1.2) Assessment and Plan Assessment: Status post mechanical fall and right femoral neck fracture. Status post right hip arthroplasty on 06/27/2017 Active nicotine addiction DVT prophylaxis Plan: Patient will be continued on pain medications and bowel regimen. DVT prophylaxis. PT OT. Encourage incentive spirometry. Antibiotic regulation with Coumadin. INR 1.7 --1.9 Patient is stable to be discharged home. Time with Patient: Greater than 30
== END 2017-06-30 13:06 | disposition home or self-care (01) | DRG 470 ==
LOC: EC 11:36 → 3SUR 13:45
PROVIDERS: ADMIT Orthopaedic Surgery; ATTEND Orthopaedic Surgery
PROC: 0SRR0J9 Replacement of Right Hip Joint, Femoral Surface with Synthetic Substitute, Cemented, Open Approach (ICD-10-PCS; principal; 2017-06-26)
DX: S72.001A Fracture of unspecified part of neck of right femur, initial encounter for closed fracture (principal); M25.051 Hemarthrosis, right hip; F17.200 Nicotine dependence, unspecified, uncomplicated; W10.9XXA Fall (on) (from) unspecified stairs and steps, initial encounter; Z88.5 Allergy status to narcotic agent; Z80.1 Family history of malignant neoplasm of trachea, bronchus and lung; Z80.8 Family history of malignant neoplasm of other organs or systems; Z90.710 Acquired absence of both cervix and uterus; Z91.81 History of falling
CPT/HCPCS: 36415; 51702; 71045; 73501; 73502; 80053; 85025; 85610; 85730; 88305; 88311; 93005; 96361; 96374; 99285

== ENCOUNTER → 2017-10-26 | Outpatient (CLI) | payer MEDICARE ==
--- NOTE | 2017-10-27 13:04 | BD ---
EXAMINATION TYPE: Axial Bone Density DATE OF EXAM: 10/26/2017 COMPARISON: NONE CLINICAL HISTORY: 77 year-old female right hip pain, aftercare follow-up, postmenopausal screening Height: 62 Weight: 141.2 FRAX RISK QUESTIONS: Alcohol (3 or more units per day): no Family History (Parent hip fracture): no Glucocorticoids (More than 3mos): no (Ex: prednisone, prednisolone, methylprednisolone, dexamethasone, and hydrocortisone). History of Fracture in Adulthood: no Secondary Osteoporosis: 1. Type 1 Diabetes: no 2. Hyperthyroidism: no 3. Menopause before 45: no 4. Malnutrition: no 5. Chronic liver disease: no Rheumatoid Arthritis: no Current Tobacco Use: yes RISK FACTORS HISTORY OF: Surgery to Spine/Hip(right/left)/Wrist (right/left): right hip fx and surgery When: june 2017 Family History of Osteoporosis: yes Active: yes Diet low in dairy products/other sources of calcium: no Postmenopausal woman: around age 48/ Lost more than 2 inches in height since high school: no MEDICATIONS: calcium, tumeric, b complex , glucosamine Additional History: EXAM MEASUREMENTS: Bone mineral densitometry was performed using the [employer] System. Bone mineral density as measured about the Lumbar spine is: ----- L1-L4(G/cm2): 1.113 T Score Values are as follows: ----- L2: -1.2 ----- L3: 0.1 ----- L4: 0.1 ----- L1-L4: -0.6 Bone mineral density : baseline Bone mineral density about the L hip (g/cm2): 0.791 T Score values are as follows: -----L Neck: -1.8 -----L Total: -2.0 Bone mineral density : baseline IMPRESSION: Osteopenia (T Score between -2.5 and -1). There is slightly increased risk of fracture and the patient may be considered for treatment. Re-Screen 2-5 years. NOTE: T-SCORE=SD OF THE YOUNG ADULT MEAN.
== END | disposition home or self-care (01) ==
LOC: RADBDWWP 16:09
PROVIDERS: ATTEND Orthopaedic Surgery
DX: M85.80 Other specified disorders of bone density and structure, unspecified site (principal); Z96.641 Presence of right artificial hip joint
CPT/HCPCS: 77080

== ENCOUNTER → 2020-09-19 | Outpatient (CLI) | payer MEDICARE ==
[2020-09-19 20:25] LABS: HCT 39.2 % (37.2-46.3); HGB 13.1 g/dL (12.0-15.0); MCH 32.5 pg (27.0-32.0); MCHC 33.4 g/dL (32.0-37.0); MCV 97.3 fL (80.0-97.0); Mean Platelet Volume 10.4 fL (9.5-12.2); Platelet Count 237 X 10*3/uL (140-440); RBC 4.03 X 10*6/uL (4.10-5.20); RDW 11.9 % (11.5-14.5); WBC 4.41 X 10*3/uL (4.50-10.00)
[2020-09-20 16:25] LABS: Albumin/Globulin Ratio 2.35 (1.60-3.17); BUN/Creat Ratio 14.44 Ratio (12.00-20.00); Calcium 10.2 mg/dL (8.7-10.3); Chol/HDL Ratio 3.76; Globulin 1.7 g/dL (1.6-3.3); LDL Cholesterol,Calculated 107.6 mg/dL (0.0-131.0); Non-African American GFR(CKD) 61.2 (60.0-200.0); Potassium 4.6 mmol/L (3.5-5.5); Total Bilirubin 0.5 mg/dL (0.2-1.2); Total Protein 5.7 g/dL (6.2-8.2); VLDL Calculation 19.4 mg/dL (5.00-40.00)
== END | disposition home or self-care (01) ==
LOC: LABWHC1 11:59
PROVIDERS: ATTEND Family Medicine
DX: Z00.00 Encounter for general adult medical examination without abnormal findings (principal); E55.9 Vitamin D deficiency, unspecified; E20.0 Idiopathic hypoparathyroidism
CPT/HCPCS: 36415; 80053; 80061; 82306; 83970; 85027

== ENCOUNTER → 2024-09-26 | Outpatient (CLI) | payer MEDICARE ==
--- NOTE | 2024-09-26 13:01 | XR ---
EXAMINATION TYPE: XR chest 2V DATE OF EXAM: 09/26/2024 12:26 PM COMPARISON: None. CLINICAL INDICATION: Female, 84 years old with history of J44.1 COPD R05.1 ACUTE COUGH, TECHNIQUE: XR chest 2V view(s) obtained. FINDINGS: The heart size is normal. The pulmonary vasculature is normal. Small left pleural effusion is present. Hyperinflation flattening the diaphragms can be compatible with COPD IMPRESSION: 1. Small left pleural effusion. 2. COPD [facility], , 09/26/2024 12:59 PM
[2024-09-26 15:17] LABS: ALT 26 U/L (8-44); AST 28 U/L (13-35); Albumin/Globulin Ratio 1.82 Ratio (1.60-3.17); Alkaline Phosphatase 75 U/L (41-126); Blood Urea Nitrogen 14.5 mg/dL (9.0-27.0); Carbon Dioxide 25.5 mmol/L (21.6-31.8); Chloride 107 mmol/L (96-109); Chol/HDL Ratio 3.28 Ratio; Globulin 2.2 g/dL (1.6-3.3); Glucose 91 mg/dL (70-110); LDL Cholesterol,Calculated 70.1 mg/dL (0.0-131.0); Potassium 4.6 mmol/L (3.5-5.5); Sodium 143 mmol/L (135-145); Total Bilirubin 0.5 mg/dL (0.3-1.2); Total Protein 6.2 g/dL (6.2-8.2)
[2024-09-26 15:19] LABS: Basophils # (A) 0.06 X 10*3/uL (0.00-0.10); Basophils % (A) 0.7 %; Eosinophils # (A) 0.14 X 10*3/uL (0.04-0.35); Eosinophils % (A) 1.6 %; HCT 38.4 % (37.2-46.3); HGB 12.7 g/dL (12.0-15.0); Lymphocytes # (A) 2.11 X 10*3/uL (0.90-5.00); Lymphocytes % (A) 24.2 %; MCH 31.4 pg (27.0-32.0); MCHC 33.1 g/dL (32.0-37.0); MCV 94.8 FL (80.0-97.0); Mean Platelet Volume 10.1 FL (9.5-12.2); Monocytes % (A) 11.5 %; NRBC Per 100 WBC 0 X 10*3/uL (0.00-0.01); Neutrophils # (A) 5.32 X 10*3/uL (1.80-7.70); Neutrophils % (A) 61.1 %; Platelet Count 312 X 10*3/uL (140-440); RBC 4.05 X 10*6/uL (4.10-5.20); RDW 11.8 % (11.5-14.5); WBC 8.71 X 10*3/uL (4.50-10.00)
== END | disposition home or self-care (01) ==
LOC: LABWHC1 11:39
PROVIDERS: ATTEND Student in an Organized Health Care Education/Training Program
DX: J44.1 Chronic obstructive pulmonary disease with (acute) exacerbation (principal); J90 Pleural effusion, not elsewhere classified; E78.00 Pure hypercholesterolemia, unspecified; N18.31 Chronic kidney disease, stage 3a; R05.1 Acute cough
CPT/HCPCS: 36415; 71046; 80053; 80061; 85025

== ENCOUNTER → 2024-11-02 | Outpatient (CLI) | payer MEDICARE ==
[2024-11-02 14:22] LABS: African American GFR (CKD) 67 (>60 ml/min/1.73 sqM); Blood Urea Nitrogen 17 mg/dL (7-17); Non-African American GFR(CKD) 58 (>60 ml/min/1.73 sqM)
--- NOTE | 2024-11-02 15:06 | CT ---
CT chest with contrast. HISTORY: Pleural effusion COMPARISON: None TECHNIQUE: Multiple axial images were obtained through the thorax following the uneventful administra tion of nonionic IV contrast material. FINDINGS: There is a 9.5 mm spiculated nodule in the right upper lobe and a 7.7 mm groundglass nodule in the ri ght lower lobe. There is a 9.5 mm subsolid nodule in the left upper lobe. There is a 6 mm nodule in t he right lower lobe. This tiny scarlike density in the right lung apex. There is no pleural effusion, pleural thickening or pneumothorax. The great vessels the chest are normal. There is no mediastinal, hilar or axillary adenopathy. Limited scanning of the upper abdomen reveals 2 large nonobstructing left renal calcifications the la rgest of which is 14 mm. There are no focal osseous lesions. IMPRESSION: 1. No pleural effusions. 2. Multiple pulmonary nodules. The index nodule is a 9.5 mm spiculated nodule in the right upper lobe which is suspicious for malignancy. PET scan is recommended for further evaluation [facility], , 11/02/2024 3:04 PM
== END | disposition home or self-care (01) ==
LOC: RADCTMAIN 13:34
PROVIDERS: ATTEND Student in an Organized Health Care Education/Training Program
DX: J90 Pleural effusion, not elsewhere classified (principal); R05.3 Chronic cough; R91.8 Other nonspecific abnormal finding of lung field
CPT/HCPCS: 82565; 84520; 71260; 36415; Q9967